=== PATIENT | male | born 2000 | race American Indian/Alaskan Native ===

== ENCOUNTER 2018-12-16 19:23 | Emergency (ER) | payer MEDICAID, OTHER ==
--- NOTE | 2018-12-16 19:50 | Emergency Department Report ---
Blank Doc - Documentation Documentation: This is a 18-year-old male that presents with midsternum chest pain and produc tive cough. This initial assessment/diagnostic orders/clinical plan/treatment(s) is/are subject to change based on patient's health status, clinical progression and re- assessment by fellow clinical providers in the ED. Further treatment and workup at subsequent clinical providers discretion. Patient/guardians urged not to elope from the ED as their condition may be serious if not clinically assessed and managed. Initial orders include: 1- Patient sent to [facility] for further evaluation and treatment 2- EKG 3- CXR
--- NOTE | 2018-12-16 21:24 | XRay Report ---
PROCEDURE: XR CHEST ROUTINE 2V TECHNIQUE: PA and lateral chest HISTORY: cough COMPARISONS: No priors FINDINGS: Cardiomediastinal silhouette within normal limits. No evidence of airspace consolidation or pleural effusions. The pulmonary vasculature is within normal limits. IMPRESSION: No radiographic evidence of acute disease.. This document is electronically signed by Jace Rodriguez MD., December 16 2018 09:22:30 PM ET
[2018-12-16] MEDS ORDERED: PROVENTIL IH ONE (21:42)
[2018-12-16] MEDS ORDERED: IBUPROFEN PO ONE (21:42)
[2018-12-16] MEDS ORDERED: DELTASONE PO ONE (21:42)
--- NOTE | 2018-12-16 22:23 | Emergency Department Report ---
Upper Respiratory HPI - HPI Stated Complaint: CHEST PAIN Time Seen by Provider: 12/16/18 19:49 Duration: 5 Days URI Symptoms: Rhinorrhea: Yes, Sore Throat: Yes, Ear Pain: Yes, Cough: Yes (wheezing cp with cough only ), Sick Contacts: Yes - Home Meds and Allergies Home Medications: Previous Rx's Medication Instructions Recorded Last Taken Type Ibuprofen [Motrin] 400 mg PO Q8H PRN #20 tablet 09/15/14 Unknown Rx guaiFENesin/CODEINE [Robitussin AC] 5 ml PO TID #80 ml 09/15/14 Unknown Rx ALBUTEROL Inhaler(NF) [VENTOLIN 2 puff IH Q4H PRN #1 inha 12/16/18 Unknown Rx Inhaler(NF)] Azithromycin [Zithromax Z-STEPHANY] 250 mg PO DAILY #6 tab 12/16/18 Unknown Rx Benzonatate [Tessalon Perle] 100 mg PO TID PRN #30 capsule 12/16/18 Unknown Rx Ibuprofen 800 mg PO TID PRN #30 tablet 12/16/18 Unknown Rx Allergies/Adverse Reactions: Allergies Allergy/AdvReac Type Severity Reaction Status Date / Time No Known Allergies Allergy Unverified 09/15/14 10:31 ED Review of Systems ROS: Stated complaint: CHEST PAIN Other details as noted in HPI Constitutional: denies: chills, fever Eyes: denies: eye pain, eye discharge, vision change ENT: throat pain, congestion Respiratory: cough, wheezing Cardiovascular: chest pain (chest wall pain right ) Endocrine: no symptoms reported Gastrointestinal: denies: abdominal pain, nausea, diarrhea Genitourinary: denies: urgency, dysuria Musculoskeletal: as per HPI Skin: denies: rash, lesions Neurological: denies: headache, weakness, paresthesias Psychiatric: denies: anxiety, depression Hematological/Lymphatic: denies: easy bleeding, easy bruising ED Past Medical Hx - Past Medical History Previous Medical History?: No - Surgical History Past Surgical History?: No - Social History Smoking Status: Current Every Day Smoker Substance Use Type: Marijuana - Medications Home Medications: Home Medications Medication Instructions Recorded Confirmed Last Taken Type Ibuprofen [Motrin] 400 mg PO Q8H PRN #20 tablet 09/15/14 Unknown Rx guaiFENesin/CODEINE [Robitussin AC] 5 ml PO TID #80 ml 09/15/14 Unknown Rx ALBUTEROL Inhaler(NF) [VENTOLIN 2 puff IH Q4H PRN #1 inha 12/16/18 Unknown Rx Inhaler(NF)] Azithromycin [Zithromax Z-STEPHANY] 250 mg PO DAILY #6 tab 12/16/18 Unknown Rx Benzonatate [Tessalon Perle] 100 mg PO TID PRN #30 capsule 12/16/18 Unknown Rx Ibuprofen 800 mg PO TID PRN #30 tablet 12/16/18 Unknown Rx ED Bronchiolitis Physical Exam - Exam General: Vital signs noted. No distress. Alert and acting appropriately. HEENT: Yes Pharyngeal Erythema, Yes Rhinorrhea, No Conjuctival Injection, No Dry Mucous Membranes Ear: Left EAC Discharge, Neither TM Bulge, Neither TM Erythema Neck: Yes Adenopathy, No Rigidity Lungs: Yes Good Air Exchange, Yes Wheezes (bialt anterior upper lobes), Yes Cough, No Clear Lung Sounds, No Stridor, No Nasal Flaring, No Retractions, No Use of Accessory Muscles Heart: Yes Regular, No Murmur Abdomen: Yes Normal Bowel Sounds, No Tenderness, No Peritoneal Signs Skin: No Rash, No Eczema Neurologic: Alert and oriented, no deficits. Musculoskeletal: Unremarkable. ED Bronchiolitis Tests - Testing Testing: CXR: Normal/Negative (normal no infiltrates on opacities) Treatments - Treaments Treatment: Improved Albuterol (prednisone), Not Improved Suctioning, Not Improved Racemic Epi ED Physical Exam - General Limitations: No Limitations General appearance: alert, in no apparent distress - Head Head exam: Present: atraumatic, normocephalic - Eye Eye exam: Present: normal appearance (all), PERRL, EOMI - ENT ENT exam: Present: mucous membranes moist, TM's normal bilaterally, normal external ear exam - Expanded ENT Exam Expanded Ear exam: Present: normal external inspection Mouth exam: Absent: trismus Throat exam: Positive: tonsillar erythema, tonsillomegaly, other (uvula midline no exudate no lesions no stridor no swelling airway is patent ). Negative: tonsillar exudate, R peritonsillar mass, L peritonsillar mass - Neck Neck exam: Present: normal inspection, full ROM. Absent: tenderness, lymphadenopathy, thyromegaly - Respiratory Respiratory exam: Present: normal lung sounds bilaterally. Absent: respiratory distress, wheezes, stridor, chest wall tenderness - Cardiovascular Cardiovascular Exam: Present: regular rate, normal rhythm, normal heart sounds. Absent: systolic murmur, diastolic murmur, rubs, gallop - GI/Abdominal GI/Abdominal exam: Present: soft, normal bowel sounds. Absent: distended, tenderness, guarding, rebound, rigid, bruit, hernia - Rectal Rectal exam: Present: deferred - Extremities Exam Extremities exam: Present: normal inspection, full ROM, normal capillary refill. Absent: tenderness - Back Exam Back exam: Present: normal inspection, full ROM. Absent: tenderness, rash noted - Neurological Exam Neurological exam: Present: alert, oriented X3, CN II-XII intact, normal gait - Psychiatric Psychiatric exam: Present: normal affect, normal mood - Skin Skin exam: Present: warm, dry, intact, normal color. Absent: rash ED Course Vital Signs 12/16/18 19:54 Temperature 98.3 F Pulse Rate 102 H Respiratory 20 Rate Blood Pressure 122/72 O2 Sat by Pulse 100 Oximetry ED Medical Decision Making - Radiology Data Radiology results: report reviewed, image reviewed - Medical Decision Making Patient: AGUS MCGARRY MR#: [id number] : 2000 Acct:[id number] Age/Sex: 18 / M ADM Date: 12/16/18 Loc: ED Attending Dr: Ordering Physician: HAROON BARBOZA NP Date of Service: 12/16/18 Procedure(s): XR chest routine 2V Accession Number(s): [id number] cc: HAROON BARBOZA NP Fluoro Time In Minutes: PROCEDURE: XR CHEST ROUTINE 2V TECHNIQUE: PA and lateral chest HISTORY: cough COMPARISONS: No priors FINDINGS: Cardiomediastinal silhouette within normal limits. No evidence of airspace consolidation or pleural effusions. The pulmonary vasculature is within normal limits. IMPRESSION: No radiographic evidence of acute disease.. This document is electronically signed by Jace Rodriguez MD., December 16 2018 09:22:30 PM ET Transcribed By: VALERIE Dictated By: JACE RODRIGUEZ MD Electronically Authenticated By: JACE RODRIGUEZ MD Signed Date/Time: 12/16/182123 DD/ 00 TD/TT: 12/16/182100 Critical care attestation.: If time is entered above; I have spent that time in minutes in the direct care of this critically ill patient, excluding procedure time. ED Disposition Clinical Impression: Bronchitis URI (upper respiratory infection) Qualifiers: URI type: unspecified viral URI Qualified Code(s): J06.9 - Acute upper respiratory infection, unspecified Disposition: - TO HOME OR SELFCARE Is pt being admited?: No Does the pt Need Aspirin: No Condition: Stable Instructions: Acute Bronchitis (ED), Upper Respiratory Infection (ED) Prescriptions: Ibuprofen 800 mg PO TID PRN #30 tablet PRN Reason: pain fever Benzonatate [Tessalon Perle] 100 mg PO TID PRN #30 capsule PRN Reason: Cough ALBUTEROL Inhaler(NF) [VENTOLIN Inhaler(NF)] 2 puff IH Q4H PRN #1 inha PRN Reason: shortness of breath wheezing Azithromycin [Zithromax Z-STEPHANY] 250 mg PO DAILY #6 tab Referrals: [facility] [Outside] - 3-5 Days Forms: Work/School Release Form(ED) Time of Disposition: 22:47
[2018-12-16 22:56] VITALS: BP 122/84
== END 2018-12-16 22:55 | disposition home or self-care (01) ==
LOC: ED 19:23
DX: J40 Bronchitis, not specified as acute or chronic (principal); J06.9 Acute upper respiratory infection, unspecified; F17.200 Nicotine dependence, unspecified, uncomplicated; F12.10 Cannabis abuse, uncomplicated; Z79.899 Other long term (current) drug therapy
CPT/HCPCS: 71046; 93005; 93010; 94640; 99283; J7512

== ENCOUNTER 2020-02-12 09:28 | Emergency (ER) | payer SELFPAY ==
[2020-02-12] MEDS ORDERED: ALBUTEROL 2.5 MG/3 ML NEBU IH ONE (11:58)
[2020-02-12 12:06] VITALS: BP 117/80
--- NOTE | 2020-02-12 12:37 | Emergency Department Report ---
- General Chief Complaint: Upper Respiratory Infection Stated Complaint: GÓMEZ Time Seen by Provider: 02/12/20 11:57 Source: patient Mode of arrival: Ambulatory Limitations: No Limitations - History of Present Illness Initial Comments: 19 yo male c/o cough with mucous production x 1 week. He denies fever chest pain , no sob no chills, sore throat or bodyaches. Denies any hx of Asthma. Smokes marijuana regularly denies tabacco use.. MD Complaint: cough, nasal congestion -: week(s) (1) Severity: mild Consistency: intermittent Improves With: nothing Worsens With: nothing Associated Symptoms: nasal congestion, cough. denies: fever, chills, headache, sore throat, stiff neck, chest pain, abdominal pain, nausea, vomiting, rash, confusion, right sweats, weight loss, epistaxis, hoarseness, ear pain - Related Data Previous Rx's Medication Instructions Recorded Last Taken Type Ibuprofen [Motrin] 400 mg PO Q8H PRN #20 tablet 09/15/14 Unknown Rx guaiFENesin/CODEINE [Robitussin AC] 5 ml PO TID #80 ml 09/15/14 Unknown Rx ALBUTEROL Inhaler(NF) [VENTOLIN 2 puff IH Q4H PRN #1 inha 12/16/18 Unknown Rx Inhaler(NF)] Azithromycin [Zithromax Z-STEPHANY] 250 mg PO DAILY #6 tab 12/16/18 Unknown Rx Benzonatate [Tessalon Perle] 100 mg PO TID PRN #30 capsule 12/16/18 Unknown Rx Ibuprofen [Ibuprofen 800] 800 mg PO TID PRN #30 tablet 12/16/18 Unknown Rx Albuterol INH(or & Nicu Only) 2 puff IH QID PRN #8.5 gram 02/12/20 Unknown Rx [ProAir HFA Inhaler] Amoxicillin [Trimox CAP] 500 mg PO Q8H #21 capsule 02/12/20 Unknown Rx Allergies Allergy/AdvReac Type Severity Reaction Status Date / Time No Known Allergies Allergy Unverified 09/15/14 10:31 ED Review of Systems ROS: Stated complaint: GÓMEZ Other details as noted in HPI Constitutional: no symptoms reported. denies: chills, fever, weakness Eyes: denies: eye pain, eye discharge ENT: denies: ear pain, throat pain Respiratory: cough, wheezing. denies: shortness of breath Cardiovascular: denies: chest pain Endocrine: denies: no symptoms reported, excessive sweating Gastrointestinal: denies: abdominal pain, nausea, vomiting, diarrhea, c onstipation Genitourinary: denies: urgency Musculoskeletal: denies: joint swelling, myalgia Neurological: denies: headache, weakness, numbness, vertigo ED Past Medical Hx - Past Medical History Previous Medical History?: No - Surgical History Past Surgical History?: No - Social History Smoking Status: Current Every Day Smoker Substance Use Type: Marijuana - Medications Home Medications: Home Medications Medication Instructions Recorded Confirmed Last Taken Type Ibuprofen [Motrin] 400 mg PO Q8H PRN #20 tablet 09/15/14 Unknown Rx guaiFENesin/CODEINE [Robitussin AC] 5 ml PO TID #80 ml 09/15/14 Unknown Rx ALBUTEROL Inhaler(NF) [VENTOLIN 2 puff IH Q4H PRN #1 inha 12/16/18 Unknown Rx Inhaler(NF)] Azithromycin [Zithromax Z-STEPHANY] 250 mg PO DAILY #6 tab 12/16/18 Unknown Rx Benzonatate [Tessalon Perle] 100 mg PO TID PRN #30 capsule 12/16/18 Unknown Rx Ibuprofen [Ibuprofen 800] 800 mg PO TID PRN #30 tablet 12/16/18 Unknown Rx Albuterol INH(or & Nicu Only) 2 puff IH QID PRN #8.5 gram 02/12/20 Unknown Rx [ProAir HFA Inhaler] Amoxicillin [Trimox CAP] 500 mg PO Q8H #21 capsule 02/12/20 Unknown Rx ED Physical Exam - General Limitations: No Limitations General appearance: alert - Head Head exam: Present: atraumatic - Eye Eye exam: Present: normal appearance - ENT ENT exam: Present: normal exam, mucous membranes moist, TM's normal bilaterally, other (no post pharyngeal exudate, no tonsillar swelling , mild erythrema) - Respiratory Respiratory exam: Present: wheezes, decreased breath sounds - Cardiovascular Cardiovascular Exam: Present: regular rate, normal heart sounds - GI/Abdominal GI/Abdominal exam: Present: soft - Rectal Rectal exam: Present: deferred - Extremities Exam Extremities exam: Present: normal inspection - Neurological Exam Neurological exam: Present: alert, oriented X3 - Psychiatric Psychiatric exam: Present: normal affect - Skin Skin exam: Present: warm, dry, intact, normal color. Absent: rash, erythema ED Course Vital Signs 02/12/20 02/12/20 02/12/20 09:36 09:37 11:40 Temperature 97.9 F 97.9 F 97.8 F Pulse Rate 74 74 65 Respiratory 16 18 Rate Blood Pressure 128/87 117/80 [Right] O2 Sat by Pulse 97 Oximetry - Reevaluation(s) Reevaluation #1: 02/12/20 13:20 Pt reports feeling much better after neb treatment. Lungs ausculated clear breath sounds at this time ED Medical Decision Making - Radiology Data Radiology results: report reviewed chest xray Heart: Within normal limits. Lungs: No acute air space or interstitial disease. Pleura: No significant pleural effusion. No pneumothorax. Additional findings: None. IMPRESSION: 1. No acute findings. - Medical Decision Making 19 yo male with 1 week of productive cough. Lungs with scattered wheezing which cleared up after 1 albuterol neb treatment. CXR no acute findings. Plan to discharge home with Amoxicillin and Albuterol inhaler. Critical care attestation.: If time is entered above; I have spent that time in minutes in the direct care of this critically ill patient, excluding procedure time. ED Disposition Clinical Impression: Wheezing Upper respiratory infection Qualifiers: URI type: acute laryngopharyngitis Qualified Code(s): J06.0 - Acute laryngopharyngitis Disposition: - TO HOME OR SELFCARE Is pt being admited?: No Does the pt Need Aspirin: No Condition: Stable Instructions: Cold Symptoms (ED) Additional Instructions: Rest increase oral hydration. Follow up with your doctor or . Take medications as prescribed. Prescriptions: Albuterol INH(or & Nicu Only) [ProAir HFA Inhaler] 2 puff IH QID PRN #8.5 gram PRN Reason: Shortness Of Breath Amoxicillin [Trimox CAP] 500 mg PO Q8H #21 capsule Referrals: PRIMARY CAREMD [Primary Care Provider] - 3-5 Days RAY ACOSTA MD [Staff Physician] - 3-5 Days
--- NOTE | 2020-02-12 12:47 | XRay Report ---
CHEST 2 VIEWS INDICATION: cough wheezing. COMPARISON: None FINDINGS: Support devices: None. Heart: Within normal limits. Lungs: No acute air space or interstitial disease. Pleura: No significant pleural effusion. No pneumothorax. Additional findings: None. IMPRESSION: 1. No acute findings. Signer Name: Yadiel Ramires MD Signed: 02/12/2020 12:42 PM Workstation Name: [id number]
== END 2020-02-12 14:05 | disposition home or self-care (01) ==
LOC: ED 09:28
DX: J06.0 Acute laryngopharyngitis (principal)
CPT/HCPCS: 71046

== ENCOUNTER 2021-06-08 11:16 | Emergency (ER) | payer SELFPAY ==
[2021-06-08] MEDS ORDERED: IPRATROPIUM 0.02% NEBU 2.5 ML IH ONE (11:34)
[2021-06-08] MEDS ORDERED: ALBUTEROL 2.5 MG/3 ML NEBU IH ONE (11:34)
[2021-06-08] MEDS ORDERED: methylPREDNISolone Sod Succinate 125 MG/2 ML INJ IM ONE (11:34)
[2021-06-08 12:31] VITALS: BP 143/80
--- NOTE | 2021-06-08 13:39 | Emergency Department Report ---
ED Asthma HPI - General Chief Complaint: Dyspnea/Respdistress Stated Complaint: DIFF BREATHING PUI?: No Source: patient Mode of arrival: Ambulatory Limitations: No Limitations - History of Present Illness Initial Comments: The patient was evaluated in the emergency department for symptoms described in the history of present illness. He/she was evaluated in the context of the global COVID-19 pandemic, which necessitated consideration that the patient might be at risk for infection with the virus that causes COVID-19. Institutional protocols and algorithms that pertain to the evaluation of patients at risk for COVID-19 are in a state of rapid change based on information released by regulatory bodies including the CDC and federal and state organizations. These policies and algorithms were followed during the patient's care in the emergency department. Please note that these policies, procedures and recommendations changed on a rapid basis. 20-year-old -[place] male presents to the emergency room for 4-day history of wheezing shortness of breath that is been intermittent. Patient denies any fever denies any shortness of breath except when he lies down. States he has has intermittent chest pain. Has never been intubated never been hospitalized. Patient states he ran out of his asthma medicine. Patient reports he does not have a primary care provider. MD Complaint: wheezing Onset/Timin -: days(s) Asthma History: childhood onset Severity: moderate Context: ran out of meds - Related Data Current Asthma Therapy: inhaled bronchodilator Previous Rx's Medication Instructions Recorded Last Taken Type Ibuprofen [Motrin] 400 mg PO Q8H PRN #20 tablet 09/15/14 Unknown Rx guaiFENesin/CODEINE [Robitussin AC] 5 ml PO TID #80 ml 09/15/14 Unknown Rx ALBUTEROL Inhaler(NF) [VENTOLIN 2 puff IH Q4H PRN #1 inha 12/16/18 Unknown Rx Inhaler(NF)] Azithromycin [Zithromax Z-STEPHANY] 250 mg PO DAILY #6 tab 12/16/18 Unknown Rx Benzonatate [Tessalon Perle] 100 mg PO TID PRN #30 capsule 12/16/18 Unknown Rx Ibuprofen [Ibuprofen 800] 800 mg PO TID PRN #30 tablet 12/16/18 Unknown Rx Albuterol Mdi (or & Nicu Only) 2 puff IH QID PRN #8.5 gram 02/12/20 Unknown Rx [ProAir HFA Inhaler] Amoxicillin [Trimox CAP] 500 mg PO Q8H #21 capsule 02/12/20 Unknown Rx Albuterol Sulfate [Proventil Hfa] 6.7 gm IH QID PRN #1 hfa.aer.ad 06/08/21 Unknown Rx Prednisone [predniSONE 10 mg 10 mg PO .TAPER #1 tab.ds.pk 06/08/21 Unknown Rx (6-Day Pack, 21 Tabs)] Allergies Allergy/AdvReac Type Severity Reaction Status Date / Time No Known Allergies Allergy Unverified 09/15/14 10:31 ED Review of Systems ROS: Stated complaint: DIFF BREATHING Other details as noted in HPI Comment: All other systems reviewed and negative ED Past Medical Hx - Past Medical History Previous Medical History?: Yes Hx Asthma: Yes - Surgical History Past Surgical History?: No - Social History Smoking Status: Never Smoker Substance Use Type: None - Medications Home Medications: Home Medications Medication Instructions Recorded Confirmed Last Taken Type Ibuprofen [Motrin] 400 mg PO Q8H PRN #20 tablet 09/15/14 Unknown Rx guaiFENesin/CODEINE [Robitussin AC] 5 ml PO TID #80 ml 09/15/14 Unknown Rx ALBUTEROL Inhaler(NF) [VENTOLIN 2 puff IH Q4H PRN #1 inha 12/16/18 Unknown Rx Inhaler(NF)] Azithromycin [Zithromax Z-STEPHANY] 250 mg PO DAILY #6 tab 12/16/18 Unknown Rx Benzonatate [Tessalon Perle] 100 mg PO TID PRN #30 capsule 12/16/18 Unknown Rx Ibuprofen [Ibuprofen 800] 800 mg PO TID PRN #30 tablet 12/16/18 Unknown Rx Albuterol Mdi (or & Nicu Only) 2 puff IH QID PRN #8.5 gram 02/12/20 Unknown Rx [ProAir HFA Inhaler] Amoxicillin [Trimox CAP] 500 mg PO Q8H #21 capsule 02/12/20 Unknown Rx Albuterol Sulfate [Proventil Hfa] 6.7 gm IH QID PRN #1 hfa.aer.ad 06/08/21 Unknown Rx Prednisone [predniSONE 10 mg 10 mg PO .TAPER #1 tab.ds.pk 06/08/21 Unknown Rx (6-Day Pack, 21 Tabs)] ED Physical Exam - General Limitations: No Limitations General appearance: alert, in no apparent distress - Head Head exam: Present: atraumatic, normocephalic - Eye Eye exam: Present: normal appearance - ENT ENT exam: Present: normal exam, normal external ear exam - Neck Neck exam: Present: normal inspection, full ROM - Respiratory Respiratory exam: Present: wheezes, accessory muscle use, prolonged expiratory - Cardiovascular Cardiovascular Exam: Present: tachycardia - GI/Abdominal GI/Abdominal exam: Present: soft, normal bowel sounds - Extremities Exam Extremities exam: Present: normal inspection, full ROM - Back Exam Back exam: Present: normal inspection - Neurological Exam Neurological exam: Present: alert, oriented X3, normal gait - Psychiatric Psychiatric exam: Present: normal affect, normal mood - Skin Skin exam: Present: warm, dry, intact, normal color. Absent: rash ED Course Vital Signs 06/08/21 06/08/21 11:20 12:23 Temperature 99 F Pulse Rate 107 H 120 H Respiratory 16 18 Rate Blood Pressure 143/80 Blood Pressure 116/81 [Left] O2 Sat by Pulse 96 100 Oximetry - Reevaluation(s) Reevaluation #1: 06/08/21 13:47 Patient reports that he feels much better. Lung exam is clear throughout. Patient is no longer using accessory muscles. ED Medical Decision Making - Medical Decision Making 20-year-old -[place] male presents to the emergency room for 4-day history of wheezing shortness of breath that is been intermittent. Patient denies any fever denies any shortness of breath except when he lies down. States he has has intermittent chest pain. Has never been intubated never been hospitalized. Patient states he ran out of his asthma medicine. Patient reports he does not have a primary care provider. Patient is given a breathing treatment and steroids. Reports he feels much better. Patient will be discharged home with a refill on albuterol inhaler and a prescription for steroid therapy. Critical care attestation.: If time is entered above; I have spent that time in minutes in the direct care of this critically ill patient, excluding procedure time. ED Disposition Clinical Impression: Asthma Disposition: HOME / SELF CARE / HOMELESS Is pt being admited?: No Does the pt Need Aspirin: No Condition: Stable Instructions: Asthma (ED), Asthma Attack Prevention, Adult Additional Instructions: Please complete your steroid pack as prescribed. Use your inhaler as needed. Follow-up with a primary care provider to manage your asthma with you. Prescriptions: Prednisone [predniSONE 10 mg (6-Day Pack, 21 Tabs)] 10 mg PO .TAPER #1 tab.ds.pk Albuterol Sulfate [Proventil Hfa] 6.7 gm IH QID PRN #1 hfa.aer.ad PRN Reason: Wheezing Referrals: PRIMARY CARE, [Primary Care Provider] - 3-5 Days [facility] [place] [Provider Group] - 3-5 Days Forms: Work/School Release Form(ED) Time of Disposition: 13:55
== END 2021-06-08 14:08 | disposition home or self-care (01) ==
LOC: ED 11:16
DX: J45.909 Unspecified asthma, uncomplicated (principal); Z79.899 Other long term (current) drug therapy
CPT/HCPCS: 94640; 96372; 99282; J2930

== ENCOUNTER 2021-10-30 14:32 | Emergency (ER) | payer SELFPAY ==
[2021-10-30 16:50] VITALS: BP 96/64
[2021-10-30] MEDS ORDERED: predniSONE 20 MG TAB PO ONE (17:20)
[2021-10-30] MEDS ORDERED: BENZONATATE 100 MG CAP PO ONE (17:20)
--- NOTE | 2021-10-30 17:24 | Emergency Department Report ---
- General Chief Complaint: Upper Respiratory Infection Stated Complaint: CHEST PAIN/CONGESTION Time Seen by Provider: 10/30/21 17:10 Source: patient Mode of arrival: Ambulatory Limitations: No Limitations - History of Present Illness Initial Comments: 21 yom with pmh of asthma presents to the ed for evaluation of cough and congestion. He states that yesterday, he had some congestion, cough, sob, and chest tightness. He states that he is no longer sob or has chest tightness, but he ran out of his inhaler and needs another prescription. MD Complaint: cough -: Gradual, days(s) (1) Severity: mild Consistency: intermittent Associated Symptoms: rhinorrhea, nasal congestion, cough. denies: fever, chills, myalgias, diaphoresis, headache, sore throat, stiff neck, chest pain, shortness of breath, abdominal pain, nausea, vomiting, diarrhea, right sweats, hoarseness, ear pain Treatments Prior to Arrival: none - Related Data Previous Rx's Medication Instructions Recorded Last Taken Type Ibuprofen [Motrin] 400 mg PO Q8H PRN #20 tablet 09/15/14 Unknown Rx guaiFENesin/CODEINE [Robitussin AC] 5 ml PO TID #80 ml 09/15/14 Unknown Rx ALBUTEROL Inhaler(NF) [VENTOLIN 2 puff IH Q4H PRN #1 inha 12/16/18 Unknown Rx Inhaler(NF)] Azithromycin [Zithromax Z-STEPHANY] 250 mg PO DAILY #6 tab 12/16/18 Unknown Rx Benzonatate [Tessalon Perle] 100 mg PO TID PRN #30 capsule 12/16/18 Unknown Rx Ibuprofen [Ibuprofen 800] 800 mg PO TID PRN #30 tablet 12/16/18 Unknown Rx Albuterol Mdi (or & Nicu Only) 2 puff IH QID PRN #8.5 gram 02/12/20 Unknown Rx [ProAir HFA Inhaler] Amoxicillin [Trimox CAP] 500 mg PO Q8H #21 capsule 02/12/20 Unknown Rx Albuterol Sulfate [Proventil Hfa] 6.7 gm IH QID PRN #1 hfa.aer.ad 06/08/21 Unknown Rx Prednisone [predniSONE 10 mg 10 mg PO .TAPER #1 tab.ds.pk 06/08/21 Unknown Rx (6-Day Pack, 21 Tabs)] Albuterol Mdi (or & Nicu Only) 2 puff IH QID PRN #8.5 gram 10/30/21 Unknown Rx [ProAir HFA Inhaler] Brompheniramine/Pseudoephed/Dm 10 ml PO TID PRN #120 ml 10/30/21 Unknown Rx [Bromfed Dm Cough Syrup] Allergies Allergy/AdvReac Type Severity Reaction Status Date / Time No Known Allergies Allergy Unverified 09/15/14 10:31 ED Review of Systems ROS: Stated complaint: CHEST PAIN/CONGESTION Other details as noted in HPI Comment: All other systems reviewed and negative Constitutional: denies: chills, diaphoresis, fever, malaise Eyes: denies: eye pain, eye discharge ENT: congestion. denies: ear pain, dental pain Respiratory: cough. denies: orthopnea, shortness of breath, SOB with exertion, SOB at rest, wheezing Cardiovascular: denies: chest pain, palpitations, dyspnea on exertion, edema, syncope, paroxysmal nocturnal dyspnea Endocrine: no symptoms reported Gastrointestinal: denies: abdominal pain, nausea, vomiting Genitourinary: denies: urgency, dysuria Musculoskeletal: denies: back pain Skin: denies: rash, lesions Neurological: denies: headache, weakness, confusion Psychiatric: denies: anxiety, depression Hematological/Lymphatic: denies: easy bleeding, easy bruising ED Past Medical Hx - Past Medical History Hx Asthma: Yes - Social History Smoking Status: Never Smoker Substance Use Type: None - Medications Home Medications: Home Medications Medication Instructions Recorded Confirmed Last Taken Type Ibuprofen [Motrin] 400 mg PO Q8H PRN #20 tablet 09/15/14 Unknown Rx guaiFENesin/CODEINE [Robitussin AC] 5 ml PO TID #80 ml 09/15/14 Unknown Rx ALBUTEROL Inhaler(NF) [VENTOLIN 2 puff IH Q4H PRN #1 inha 12/16/18 Unknown Rx Inhaler(NF)] Azithromycin [Zithromax Z-STEPHANY] 250 mg PO DAILY #6 tab 12/16/18 Unknown Rx Benzonatate [Tessalon Perle] 100 mg PO TID PRN #30 capsule 12/16/18 Unknown Rx Ibuprofen [Ibuprofen 800] 800 mg PO TID PRN #30 tablet 12/16/18 Unknown Rx Albuterol Mdi (or & Nicu Only) 2 puff IH QID PRN #8.5 gram 02/12/20 Unknown Rx [ProAir HFA Inhaler] Amoxicillin [Trimox CAP] 500 mg PO Q8H #21 capsule 02/12/20 Unknown Rx Albuterol Sulfate [Proventil Hfa] 6.7 gm IH QID PRN #1 hfa.aer.ad 06/08/21 Unknown Rx Prednisone [predniSONE 10 mg 10 mg PO .TAPER #1 tab.ds.pk 06/08/21 Unknown Rx (6-Day Pack, 21 Tabs)] Albuterol Mdi (or & Nicu Only) 2 puff IH QID PRN #8.5 gram 10/30/21 Unknown Rx [ProAir HFA Inhaler] Brompheniramine/Pseudoephed/Dm 10 ml PO TID PRN #120 ml 10/30/21 Unknown Rx [Bromfed Dm Cough Syrup] ED Physical Exam - General Limitations: No Limitations General appearance: alert, in no apparent distress - Head Head exam: Present: atraumatic, normocephalic - Eye Eye exam: Present: normal appearance. Absent: conjunctival injection - Neck Neck exam: Present: normal inspection. Absent: tenderness, lymphadenopathy - Respiratory Respiratory exam: Present: normal lung sounds bilaterally. Absent: respiratory distress, wheezes, rales, rhonchi, stridor, chest wall tenderness, accessory muscle use - Cardiovascular Cardiovascular Exam: Present: regular rate, normal heart sounds - GI/Abdominal GI/Abdominal exam: Present: soft, normal bowel sounds. Absent: distended, tenderness, guarding, rebound, rigid - Extremities Exam Extremities exam: Present: normal inspection, full ROM - Back Exam Back exam: Present: normal inspection, full ROM. Absent: tenderness, CVA tenderness (R), CVA tenderness (L) - Neurological Exam Neurological exam: Present: alert, oriented X3 - Psychiatric Psychiatric exam: Present: normal affect, normal mood - Skin Skin exam: Present: warm, dry, intact, normal color ED Course Vital Signs 10/30/21 16:48 Temperature 98.2 F Pulse Rate 72 Respiratory 16 Rate Blood Pressure 96/64 [Left] O2 Sat by Pulse 97 Oximetry ED Medical Decision Making - Medical Decision Making 21 yom with pmh of asthma presents to the ed for evaluation of cough and congestion. He states that yesterday, he had some congestion, cough, sob, and chest tightness. He states that he is no longer sob or has chest tightness, but he ran out of his inhaler and needs another prescription. Patient without any acute findings on exam. Lungs CTA and patient without c/o at this time. Patient will be given one time dose of prednisone and tessalon perles. He will get refill of albuterol inhaler along with bromfed cough syrup to use as needed. He is advised to take medications as prescribed and follow up with pcp if worsening symptoms. He verbalized understanding of and agreement with plan of care. Critical care attestation.: If time is entered above; I have spent that time in minutes in the direct care of this critically ill patient, excluding procedure time. ED Disposition Clinical Impression: URI with cough and congestion Disposition: 01 HOME / SELF CARE / HOMELESS Is pt being admited?: No Does the pt Need Aspirin: No Condition: Stable Instructions: Cough, Adult, [id number], Upper Respiratory Infection, Adult, [id number] Additional Instructions: Take medications as prescribed. Follow-up with primary care provider if no improvement or worsening symptoms. Prescriptions: Brompheniramine/Pseudoephed/Dm [Bromfed Dm Cough Syrup] 10 ml PO TID PRN #120 ml PRN Reason: Cough Albuterol Mdi (or & Nicu Only) [ProAir HFA Inhaler] 2 puff IH QID PRN #8.5 gram PRN Reason: Shortness Of Breath Referrals: BROWN BRYAN, [facility] [Referring] - 3-5 Days Forms: Work/School Release Form(ED) Time of Disposition: 17:24
== END 2021-10-30 17:51 | disposition home or self-care (01) ==
LOC: ED 14:32
DX: J06.9 Acute upper respiratory infection, unspecified (principal); J45.909 Unspecified asthma, uncomplicated; Z79.899 Other long term (current) drug therapy
CPT/HCPCS: 99282

== ENCOUNTER 2021-11-08 08:06 | Emergency (ER) | payer SELFPAY ==
[2021-11-08 08:16] VITALS: BP 108/71
--- NOTE | 2021-11-08 08:21 | Emergency Department Report ---
ED Dysuria HPI - HPI Chief Complaint: Abdominal Pain Stated Complaint: LOWER AB PAIN Time Seen by Provider: 11/08/21 08:17 Location of Discomfort: Suprapubic Severity: Mild Symptoms: Dysuria: No, Frequency: No, Suprapubic Pain: Yes, Flank Pain: No, Fever: No, Hematuria: No, Abdominal Pain: No, Previous UTI's: No Other History: 21 yo comes to ER with 2 w hx suprapubic pain. No dysuria. No back pain. no fever. no chills. no discharge. no n/v/d. no fever or chills. States it gets better when he drinks water ED Review of Systems ROS: Stated complaint: LOWER AB PAIN Other details as noted in HPI Comment: All other systems reviewed and negative ED Past Medical Hx - Past Medical History Previous Medical History?: Yes Hx Asthma: Yes - Surgical History Past Surgical History?: No - Family History Family history: no significant - Social History Smoking Status: Never Smoker Substance Use Type: None - Medications Home Medications: Home Medications Medication Instructions Recorded Confirmed Last Taken Type Ibuprofen [Motrin] 400 mg PO Q8H PRN #20 tablet 09/15/14 Unknown Rx guaiFENesin/CODEINE [Robitussin AC] 5 ml PO TID #80 ml 09/15/14 Unknown Rx ALBUTEROL Inhaler(NF) [VENTOLIN 2 puff IH Q4H PRN #1 inha 12/16/18 Unknown Rx Inhaler(NF)] Azithromycin [Zithromax Z-STEPHANY] 250 mg PO DAILY #6 tab 12/16/18 Unknown Rx Benzonatate [Tessalon Perle] 100 mg PO TID PRN #30 capsule 12/16/18 Unknown Rx Ibuprofen [Ibuprofen 800] 800 mg PO TID PRN #30 tablet 12/16/18 Unknown Rx Albuterol Mdi (or & Nicu Only) 2 puff IH QID PRN #8.5 gram 02/12/20 Unknown Rx [ProAir HFA Inhaler] Amoxicillin [Trimox CAP] 500 mg PO Q8H #21 capsule 02/12/20 Unknown Rx Albuterol Sulfate [Proventil Hfa] 6.7 gm IH QID PRN #1 hfa.aer.ad 06/08/21 Unknown Rx Prednisone [predniSONE 10 mg 10 mg PO .TAPER #1 tab.ds.pk 06/08/21 Unknown Rx (6-Day Pack, 21 Tabs)] Albuterol Mdi (or & Nicu Only) 2 puff IH QID PRN #8.5 gram 10/30/21 Unknown Rx [ProAir HFA Inhaler] Brompheniramine/Pseudoephed/Dm 10 ml PO TID PRN #120 ml 10/30/21 Unknown Rx [Bromfed Dm Cough Syrup] Dysuria Exam - Exam General: Vital signs noted. No distress. Alert and acting appropriately. Exam: Yes Moist Mucous Membranes, No CVA Tenderness, No Abdominal Tenderness, No Rigidity or Guarding ED Course Vital Signs 11/08/21 08:15 Temperature 97.7 F Pulse Rate 60 Respiratory 18 Rate Blood Pressure 108/71 O2 Sat by Pulse 99 Oximetry ED Medical Decision Making - Medical Decision Making Labs 11/08/21 08:27 Urine Color Yellow Urine Turbidity Clear Urine pH 5.0 Ur Specific [place] 1.035 H Urine Protein 30 mg/dl Urine Glucose (UA) Negative Urine Ketones Trace Urine Blood Negative Urine Nitrite Negative Ur Reducing Substances Not Reportable Urine Bilirubin Negative Urine Ictotest Not Reportable Urine Urobilinogen < 2.0 Ur Leukocyte Esterase Negative Urine WBC (Auto) 1.0 Urine RBC (Auto) < 1.0 U Epithel Cells (Auto) < 1.0 Urine Mucus Few Vital Signs 11/08/21 08:15 Temperature 97.7 F Pulse Rate 60 Respiratory 18 Rate Blood Pressure 108/71 O2 Sat by Pulse 99 Oximetry ua noted spec gravity inc with tr ketones-- pt able to drink; discussed hydration with pt. vss on dc exam- no pain educated on findings of sp gravity/ketones- encouraged to drink a lot of water daily. He will dc home with conservative care and follow up if problems persist. He verbalizes understanding of plan of care. - Differential Diagnosis ro uti Critical care attestation.: If time is entered above; I have spent that time in minutes in the direct care of this critically ill patient, excluding procedure time. ED Disposition Clinical Impression: Ketonuria, Suprapubic pain Disposition: HOME / SELF CARE / HOMELESS Is pt being admited?: No Does the pt Need Aspirin: No Condition: Stable Additional Instructions: drink a lot of water as we discussed if problems persist follow up with pcp -referral below Referrals: RAY ACOSTA MD [Staff Physician] - 3-5 Days Forms: Work/School Release Form(ED) Time of Disposition: 09:14
[2021-11-08 08:38] LABS: Mucus,Urine FEW /HPF; RBC,Urine < 1.0 /HPF (0.0-6.0)
[2021-11-08 08:44] LABS: Bilirubin,Urine Negative (Negative); Blood,Urine Negative (Negative); Color,Urine Yellow (Yellow)
[2021-11-08 08:45] LABS: Urobilinogen,Urine < 2.0 mg/dL (<2.0)
== END 2021-11-08 09:49 | disposition home or self-care (01) ==
LOC: ED 08:06
DX: R82.4 Acetonuria (principal); R10.30 Lower abdominal pain, unspecified; J45.909 Unspecified asthma, uncomplicated
CPT/HCPCS: 81001; 99283